=== PATIENT | female | born 1980 | race Caucasian/White ===

== ENCOUNTER → 2017-06-23 | Outpatient (CLI) | payer OTHER ==
[~2017-06-23] MED LIST: ALBIPROI INH; ALBU90OI INH; AZIT250 PO; AZIT500 PO; CIPR500 PO; CLIN300 PO; CODGUAEL PO; DICY20 PO; FOLI400; HYDACE10B PO; HYDACE5 PO; IBUP200; IBUP800 PO; OMEP20ER PO; OXYACE5T PO; PHENA200 PO; PHENTRAMINE; PRED20 PO; PROM25 PO; PSEU30 PO; SULTRIDS PO
== END ==
LOC: LAB SHORT 09:57
DX: J39.1 Other abscess of pharynx (principal)
CPT/HCPCS: 87070; 87077; 87147; 87186; 87205

== ENCOUNTER → 2017-11-27 | Outpatient (CLI) | payer OTHER | LOC: LAB SRC 09:23 → LAB SHORT 09:23 | PROVIDERS: Registered Nurse | DX: Z12.4 Encounter for screening for malignant neoplasm of cervix (principal) | CPT/HCPCS: 87624; G0123 ==

== ENCOUNTER → 2018-03-12 | Outpatient (CLI) | payer OTHER ==
[2018-03-12 10:29] LABS: BASOPHILS ABSOLUTE AUTO 0.04 K/mm3 (0.00-0.23); BASOPHILS PERCENT AUTO 1 % (0-2); EOSINOPHILS ABSOLUTE AUTO 0.18 K/mm3 (0.00-0.68); EOSINOPHILS PERCENT AUTO 3 % (0-6); Hematocrit 41.2 % (33.0-51.0); Hemoglobin 13.5 g/dL (11.5-16.0); IMMATURE GRAN ABSOLUTE AUTO 0.02 K/mm3 (0.00-0.10); IMMATURE GRAN PERCENT AUTO 0 % (0-1); LYMPHOCYTES PERCENT AUTO 30 % (21-46); MONOCYTES PERCENT AUTO 6 % (4-13); Mean Corpuscular HGB 27.2 pg (26.0-34.0); Mean Corpuscular HGB Conc 32.8 g/dL (31.5-36.5); Mean Corpuscular Volume 83 fL (80-100); Mean Platelet Volume 9.5 fL (9.1-12.4); NEUTROPHILS ABSOLUTE AUTO 3.94 K/mm3 (1.96-9.15); NEUTROPHILS PERCENT AUTO 60 % (41-73); Platelet Count 376 K/mm3 (150-400); RDW Coefficient Variation 12.4 % (11.7-14.2); RDW Standard Deviation 37.5 fL (35.1-46.3); Red Blood Cell Count 4.97 M/mm3 (3.80-5.20); White Blood Cell Count 6.58 K/mm3 (4.00-11.30)
[2018-03-12 10:47] LABS: Alanine Aminotransfer (ALT/SGP 32 U/L (12-78); Albumin, Blood 3.5 g/dL (3.4-5.0); Albumin/Globulin Ratio 0.9 (0.8-1.8); Alk Phos 93 U/L (40-126); Anion Gap 10 mmol/L (6-16); Aspartate Aminotrans (AST/SGOT 24 U/L (12-37); Bilirubin, Total 0.3 mg/dL (0.1-1.0); Blood Urea Nitrogen 11 mg/dL (8-24); CO2, Blood 25 mmol/L (21-32); Calcium, Blood 8.7 mg/dL (8.5-10.1); Chloride, Blood 103 mmol/L (98-108); Creatinine, Blood 0.61 mg/dL (0.40-1.00); Globulin, Blood 4.1 g/dL (2.2-4.0); Glomerular Filtration Rate >60 (60-); Glucose, Blood 124 mg/dL (70-99); Potassium, Blood 3.8 mmol/L (3.5-5.5); Sodium, Blood 138 mmol/L (136-145); Thyroid Stimulating Hormone 1.499 uIU/mL (0.360-4.800); Total Protein, Blood 7.6 g/dL (6.4-8.2)
== END | disposition home or self-care (01) ==
LOC: LAB SHORT 10:21 → LAB EV 10:21
PROVIDERS: Physician Assistant
DX: L29.9 Pruritus, unspecified (principal)
CPT/HCPCS: 80053; 84443; 85025

== ENCOUNTER 2018-11-04 12:42 | Day surgery (SDC) | payer OTHER ==
[~2018-11-04] VITALS: Ht 154.9 cm; Wt 105.0 kg
[~2018-11-04 12:42] MED LIST changes: +ALBU90OI61 INH; +OMEPRAZOLE MAGN20 MG PO
--- NOTE | 2018-11-04 13:59 | NUR ---
11/04/18 1359 Jessica Hastings CALL LIGHT WITHIN REACH
--- NOTE | 2018-11-04 15:39 | NUR ---
11/04/18 1539 Miguel Madison [address] INJ INTO OPSITE BY DR[address] OROZCO. [address] EXP FEB 2021. LOT #[id number].
[2018-11-04] MEDS ORDERED: Percocet 5-3251 EACH PO (23:52)
== END 2018-11-04 17:13 | disposition home or self-care (01) ==
LOC: ORSCSDS 12:42
PROVIDERS: Surgery
PROC: 0FT44ZZ Resection of Gallbladder, Percutaneous Endoscopic Approach (ICD-10-PCS; principal; 2018-11-04 14:30)
PROC: BF131ZZ Fluoroscopy of Gallbladder and Bile Ducts using Low Osmolar Contrast (ICD-10-PCS; principal; 2018-11-04 14:30)
DX: K80.11 Calculus of gallbladder with chronic cholecystitis with obstruction (principal); I10 Essential (primary) hypertension; J45.909 Unspecified asthma, uncomplicated; E66.01 Morbid (severe) obesity due to excess calories; Z68.41 Body mass index [BMI] 40.0-44.9, adult; Z87.891 Personal history of nicotine dependence; Z79.899 Other long term (current) drug therapy
CPT/HCPCS: 88304; C1729; J0690; J1100; J1885; J2250; J2405; J2704; J2710; J2765; J3010; J7120

== ENCOUNTER 2018-11-04 21:04 | Emergency (ER) | payer OTHER ==
[~2018-11-04] VITALS: Ht 152.4 cm; Wt 104.8 kg
[2018-11-04] MEDS ORDERED: Percocet 5-3251 EACH PO (23:52)
== END 2018-11-04 23:54 | disposition home or self-care (01) ==
LOC: ER 21:04
DX: K91.840 Postprocedural hemorrhage of a digestive system organ or structure following a digestive system procedure (principal); I10 Essential (primary) hypertension; J45.909 Unspecified asthma, uncomplicated; Z88.6 Allergy status to analgesic agent; Z88.5 Allergy status to narcotic agent; Z88.0 Allergy status to penicillin; Z88.1 Allergy status to other antibiotic agents; Z79.899 Other long term (current) drug therapy; Z87.891 Personal history of nicotine dependence; Z90.49 Acquired absence of other specified parts of digestive tract
CPT/HCPCS: 12020; 99282-25

== ENCOUNTER → 2022-01-09 | Outpatient (CLI) | payer OTHER ==
[~2022-01-09] MED LIST changes: +Percocet 5-3251 EACH PO
[2022-01-09 15:04] LABS: BASOPHILS ABSOLUTE AUTO 0.03 K/mm3 (0.00-0.23); BASOPHILS PERCENT AUTO 0 % (0-2); EOSINOPHILS ABSOLUTE AUTO 0.12 K/mm3 (0.00-0.68); EOSINOPHILS PERCENT AUTO 2 % (0-6); Hematocrit 41.3 % (33.0-51.0); Hemoglobin 13.4 g/dL (11.5-16.0); IMMATURE GRAN ABSOLUTE AUTO 0.01 K/mm3 (0.00-0.10); IMMATURE GRAN PERCENT AUTO 0 % (0-1); LYMPHOCYTES ABSOLUTE AUTO 2.04 K/mm3 (0.84-5.20); LYMPHOCYTES PERCENT AUTO 26 % (21-46); MONOCYTES ABSOLUTE AUTO 0.53 K/mm3 (0.16-1.47); MONOCYTES PERCENT AUTO 7 % (4-13); Mean Corpuscular HGB 25.8 pg (26.0-34.0); Mean Corpuscular HGB Conc 32.4 g/dL (31.5-36.5); Mean Corpuscular Volume 79 fL (80-100); Mean Platelet Volume 9.4 fL (9.1-12.4); NEUTROPHILS PERCENT AUTO 65 % (41-73); Platelet Count 371 K/mm3 (150-400); RDW Standard Deviation 36.9 fL (35.1-46.3); White Blood Cell Count 7.83 K/mm3 (4.00-11.30)
[2022-01-09 15:28] LABS: Albumin, Blood 3.7 g/dL (3.4-5.0); Albumin/Globulin Ratio 0.9 (0.8-1.8); Bilirubin, Total 0.2 mg/dL (0.1-1.0); Bun/Creatinine Ratio 21.2 (12.0-20.0); Calcium, Blood 8.7 mg/dL (8.5-10.1); Creatinine, Blood 0.66 mg/dL (0.40-1.00); Globulin, Blood 3.9 g/dL (2.2-4.0); Potassium, Blood 3.6 mmol/L (3.5-5.5); Thyroid Stimulating Hormone 1.856 uIU/mL (0.360-4.800); Total Protein, Blood 7.6 g/dL (6.4-8.2)
== END | disposition home or self-care (01) ==
LOC: LAB SHORT 14:57 → LAB 14:57
PROVIDERS: Chiropractor
DX: R03.0 Elevated blood-pressure reading, without diagnosis of hypertension (principal); R53.81 Other malaise
CPT/HCPCS: 80053; 84443; 84484; 85025; 85379

== ENCOUNTER 2024-02-25 04:13 | Emergency (ER) | payer OTHER ==
[~2024-02-25] VITALS: Ht 154.9 cm; Wt 108.9 kg
[2024-02-25] MEDS ORDERED: DELTASONE20 MG PO (05:29)
[2024-02-25] MEDS ORDERED: BENZ100A PO (05:29)
[2024-02-25 05:37] VITALS: BP 145/82
== END 2024-02-25 05:39 | disposition home or self-care (01) ==
LOC: ER 04:13
DX: J45.901 Unspecified asthma with (acute) exacerbation (principal); J20.8 Acute bronchitis due to other specified organisms; I10 Essential (primary) hypertension; Z68.42 Body mass index [BMI] 45.0-49.9, adult; Z87.891 Personal history of nicotine dependence; Z79.899 Other long term (current) drug therapy; Z88.5 Allergy status to narcotic agent; Z88.0 Allergy status to penicillin; Z88.1 Allergy status to other antibiotic agents
CPT/HCPCS: 99283

== ENCOUNTER → 2024-06-01 | Outpatient (CLI) | payer OTHER ==
[~2024-06-01] MED LIST changes: +BENZ100A PO; +DELTASONE20 MG PO
[2024-06-01 15:55] LABS: Campylobacter Sp Not Detected (NOT DETECT); Enteroaggregative E. coli-EAEC Not Detected (NOT DETECT); Enteropathogenic E. coli-EPEC Not Detected (NOT DETECT); Enterotoxigenic E. coli-ETEC Not Detected (NOT DETECT); Plesiomonas Shigelloides Not Detected (NOT DETECT); Salmonella Sp Not Detected (NOT DETECT); Vibrio Cholerae Not Detected (NOT DETECT); Vibrio Sp Not Detected (NOT DETECT); Yersinia Enterocolitica Not Detected (NOT DETECT)
[2024-06-01 15:56] LABS: Adenovirus F 40/41 Not Detected (NOT DETECT); Astrovirus Not Detected (NOT DETECT); Cryptosporidium Not Detected (NOT DETECT); Cyclospora Cayetanensis Not Detected (NOT DETECT); E. Coli O157 Detected (NOT DETECT); Entamoeba Histolytica Not Detected (NOT DETECT); Giardia Lamblia Not Detected (NOT DETECT); Norovirus GI/GII Not Detected (NOT DETECT); Rotavirus A Not Detected (NOT DETECT); Sapovirus Not Detected (NOT DETECT); Shiga Toxin-prod E. coli-STEC Detected (NOT DETECT); Shigella/Enteroin E. coli-EIEC Not Detected (NOT DETECT)
== END ==
LOC: LAB 10:27 → LAB SHORT 10:27
PROVIDERS: Family Medicine
DX: R11.0 Nausea (principal)
CPT/HCPCS: 87507

== ENCOUNTER → 2024-08-03 | Outpatient (CLI) | payer OTHER ==
[2024-08-04 12:35] LABS: Bacterial Vaginosis PCR Negative (NEGATIVE); Candida Group, PCR NOT DETECTED (NOT DETECT); Candida glabrata-krusei, PCR NOT DETECTED (NOT DETECT)
== END | disposition home or self-care (01) ==
LOC: LAB SHORT 17:47
PROVIDERS: Registered Nurse
DX: N89.8 Other specified noninflammatory disorders of vagina (principal)
CPT/HCPCS: 81515

== ENCOUNTER → 2024-08-16 | Outpatient (CLI) | payer OTHER ==
[2024-08-23 08:21] LABS: HPV HIGH RISK BY TMA Not Detected; HPV SOURCE Not Provided
== END ==
LOC: LAB SHORT 13:00 → LAB 13:00 → LAB SHORT 08-17 12:29
PROVIDERS: Registered Nurse
DX: Z12.4 Encounter for screening for malignant neoplasm of cervix (principal)
CPT/HCPCS: 87624; G0123

== ENCOUNTER 2024-10-04 20:57 | Emergency (ER) | payer OTHER, MEDICARE ==
[~2024-10-04] VITALS: Ht 154.9 cm; Wt 114.8 kg
[2024-10-04 21:06] VITALS: BP 186/82
[2024-10-04] MEDS ORDERED: Ketorolac Tromethamine 15mg Vial IV ONE (23:55)
== END 2024-10-05 00:27 | disposition home or self-care (01) ==
LOC: ER 20:57
DX: S80.02XA Contusion of left knee, initial encounter (principal); S89.91XA Unspecified injury of right lower leg, initial encounter; S69.92XA Unspecified injury of left wrist, hand and finger(s), initial encounter; I10 Essential (primary) hypertension; J45.909 Unspecified asthma, uncomplicated; V89.2XXA Person injured in unspecified motor-vehicle accident, traffic, initial encounter; Z88.0 Allergy status to penicillin; Z88.8 Allergy status to other drugs, medicaments and biological substances; Z88.1 Allergy status to other antibiotic agents; Z79.52 Long term (current) use of systemic steroids; Z79.899 Other long term (current) drug therapy; Z87.891 Personal history of nicotine dependence
CPT/HCPCS: 73130; 73562-LT; 73562-RT; 74176; 74177; 96374; 99284-25; J1885; Q9967

== ENCOUNTER 2025-05-03 01:18 | Day surgery (SDC) | payer OTHER ==
[~2025-05-03 01:18] MED LIST changes: +Sod Ferric Gluc Complx/Sucrose 125 MG in NS 100 ML IV SCH
[2025-05-03] MEDS ORDERED: CALCIUM CARBON500 M1 PO (10:20)
[2025-05-03] MEDS ORDERED: AMLO5 PO (10:21)
[2025-05-03] MEDS ORDERED: OMEP20ER (10:21)
[2025-05-03] MEDS ORDERED: FLUT1DIS2 INH (10:22)
[2025-05-03 10:24] VITALS: BP 129/77
== END 2025-05-03 11:08 | disposition home or self-care (01) ==
LOC: ATC 01:18
DX: D50.9 Iron deficiency anemia, unspecified (principal); I10 Essential (primary) hypertension; K21.9 Gastro-esophageal reflux disease without esophagitis; Z79.899 Other long term (current) drug therapy
CPT/HCPCS: 96365; J2916

== ENCOUNTER 2025-05-09 02:36 | Day surgery (SDC) | payer OTHER ==
[~2025-05-09 02:36] MED LIST changes: +AMLO5 PO; +CALCIUM CARBON500 M1 PO; +FLUT1DIS2 INH; +OMEP20ER
[2025-05-09 13:41] VITALS: BP 151/82
[2025-05-09] MEDS ORDERED: DECARA1250 MC1 PO (13:45)
[2025-05-09] MEDS ORDERED: FERSU300 PO (13:47)
== END 2025-05-09 14:33 | disposition home or self-care (01) ==
LOC: ATC 02:36
DX: D50.9 Iron deficiency anemia, unspecified (principal); I10 Essential (primary) hypertension; Z79.899 Other long term (current) drug therapy
CPT/HCPCS: 96365; J2916

== ENCOUNTER 2025-05-18 00:31 | Day surgery (SDC) | payer OTHER ==
[~2025-05-18 00:31] MED LIST changes: +DECARA1250 MC1 PO; +FERSU300 PO; -Sod Ferric Gluc Complx/Sucrose 125 MG in NS 100 ML IV SCH
[2025-05-18] MEDS ORDERED: Sod Ferric Gluc Complx/Sucrose 125 MG in NS 100 ML IV SCH (06:00)
[2025-05-18 08:06] VITALS: BP 137/82
== END 2025-05-18 09:08 | disposition home or self-care (01) ==
LOC: ATC 00:31
DX: D50.9 Iron deficiency anemia, unspecified (principal); I10 Essential (primary) hypertension; K21.9 Gastro-esophageal reflux disease without esophagitis; E66.813 Obesity, class 3; Z68.42 Body mass index [BMI] 45.0-49.9, adult; Z79.899 Other long term (current) drug therapy
CPT/HCPCS: 96365; J2916

== ENCOUNTER 2025-05-24 00:05 | Day surgery (SDC) | payer OTHER ==
[2025-05-24] MEDS ORDERED: Sod Ferric Gluc Complx/Sucrose 125 MG in NS 100 ML IV SCH (01:00)
[2025-05-24 08:17] VITALS: BP 147/83
== END 2025-05-24 09:20 | disposition home or self-care (01) ==
LOC: ATC 00:05
DX: D50.9 Iron deficiency anemia, unspecified (principal); I10 Essential (primary) hypertension; Z79.899 Other long term (current) drug therapy
CPT/HCPCS: 96365; J2916

== ENCOUNTER 2025-05-31 07:24 | Day surgery (SDC) | payer OTHER ==
[~2025-05-31 07:24] MED LIST changes: +Sod Ferric Gluc Complx/Sucrose 125 MG in NS 100 ML IV SCH
[2025-05-31 07:27] VITALS: BP 132/78
== END 2025-05-31 08:34 | disposition home or self-care (01) ==
LOC: ATC 07:24
DX: D50.9 Iron deficiency anemia, unspecified (principal); I10 Essential (primary) hypertension; K21.9 Gastro-esophageal reflux disease without esophagitis; Z79.899 Other long term (current) drug therapy
CPT/HCPCS: 96365; J2916